=== PATIENT | male | born 1985 | race Caucasian/White ===

== ENCOUNTER 2019-04-23 09:31 | Emergency (ER) | payer OTHER ==
[~2019-04-23] VITALS: Ht 167.6 cm; Wt 72.6 kg
[2019-04-23 09:42] VITALS: BP 120/78
== END 2019-04-23 09:51 | disposition home or self-care (01) ==
LOC: ER 09:34
DX: S01.01XD Laceration without foreign body of scalp, subsequent encounter (principal); X58.XXXD Exposure to other specified factors, subsequent encounter